=== PATIENT | female | born 1975 | race American Indian/Alaskan Native ===

== ENCOUNTER 2018-12-07 12:46 | Outpatient (CLI) | payer BC ==
--- NOTE | 2018-12-08 08:11 | Ultrasound Report ---
BILATERAL BREAST ULTRASOUND: 12/07/18 12:46:00 CLINICAL: Abnormal mammogram. COMPARISON: 11/15/18 [facility] mammogram. FINDINGS: Ultrasound of the right breast(including all four quadrants and the retroareolar area) was performed and demonstrated no solid mass or shadowing. An irregular complex collection contiguous to the skin at 7 o'clock 11 cm from the nipple measures 3.5 x 2.6 x 1.2 cm. There is associated carbuncle at the skin. An abnormal inferior axillary lymph node with cortical thickening of 6 mm at 10 o'clock 14 cm from the nipple. The lymph node measures 1.5 x 0.9 x 1.6 cm. An intramammary lymph node at 10 o'clock 11 cm from the nipple has a thinner cortex and measures 1.2 x 0.9 x 1.3 cm. Several additional abnormal right axillary lymph nodes. Ultrasound of the left breast (including all four quadrants and the retroareolar area) was performed and demonstrated an oval shadowing solid hypoechoic mass at 9:30 o'clock 5 cm from the nipple. It measures 7 x 5 x 8 mm. In intramammary lymph node at 2 o'clock 8 cm from nipple measures 1.0 x 1.3 x 0.6 cm. Several benign-appearing left axillary lymph nodes with central fat. No suspicious lymph nodes. IMPRESSION: 1. An inflammatory superficial collection at 7 o'clock 11 cm from the nipple. This is associated with a carbuncle and may be an abscess. 2. Enlarged right intramammary lymph nodes and enlarged axillary lymph nodes with thickened cortex. 3. A probably benign 8mm solid left breast mass at 9:30 o'clock 5 cm from the nipple. RECOMMENDATION: 1. Ultrasound guided aspiration of the inflammatory collection at 7 o'clock right breast. 2. Ultrasound guided needle core biopsy of a right axillary lymph node. 3. 6 month followup left breast ultrasound to reevaluate the probably benign 8mm mass at 9:30 o'clock 5 cm from the nipple. BI-RADS 4--Suspicious
--- NOTE | 2018-12-08 08:18 | Ultrasound Report ---
ULTRASOUND GUIDED NEEDLE CORE BIOPSY OF A RIGHT AXILLARY LYMPH NODE WITH CLIP PLACEMENT and ULTRASOUND GUIDED NEEDLE ASPIRATION RIGHT BREAST : 12/07/18 12:46:00 CLINICAL: Enlarged suspicious right axillary lymph nodes and a possible abscess at 07:00 11 cmfn. COMPARISON :Same-day ultrasound FINDINGS: The procedure was explained to the patient and informed consent was obtained. The skin in the axilla was prepped with Betadine and anesthetized with 1% lidocaine. Ultrasound guided needle core biopsy of an inferior axillary lymph node was performed through a small dermatotomy using 2% lidocaine with epinephrine for deep anesthesia and a 18-gauge Achieve biopsy device. 3 samples were obtained and placed in formalin. A clip was deployed within the lymph node. Attention was then given to the lesion at 7 o'clock 11 cm from the nipple. The skin was anesthetized with 1% lidocaine and an 18-gauge needle was introduced into the collection associated with the carbuncle at the skin. No fluid could be aspirated. However, the needle was rinsed with saline and a specimen was sent for Gram stain. Hemostasis was achieved with minimal pressure and a sterile dressing was applied. The patient tolerated the procedure well and there were no apparent complications. She was discharged in good condition and was given instructions for wound care and followup. IMPRESSION: Uncomplicated ultrasound-guided needle core biopsy of a right lymph node with clip placement and ultrasound guided aspiration of an inflammatory skin lesion at 7 o'clock. No abscess.
== END 2018-12-07 12:47 | disposition home or self-care (01) ==
LOC: SPVWC 12:46
PROVIDERS: ATTEND Surgery
DX: I89.8 Other specified noninfective disorders of lymphatic vessels and lymph nodes (principal); N63.22 Unspecified lump in the left breast, upper inner quadrant; F17.210 Nicotine dependence, cigarettes, uncomplicated; I11.0 Hypertensive heart disease with heart failure; E78.5 Hyperlipidemia, unspecified; I50.23 Acute on chronic systolic (congestive) heart failure; I42.9 Cardiomyopathy, unspecified; E66.9 Obesity, unspecified; E03.9 Hypothyroidism, unspecified; Z98.890 Other specified postprocedural states; Z98.51 Tubal ligation status; Z79.899 Other long term (current) drug therapy; Z90.49 Acquired absence of other specified parts of digestive tract; Z98.891 History of uterine scar from previous surgery; Z86.2 Personal history of diseases of the blood and blood-forming organs and certain disorders involving the immune mechanism; Z88.8 Allergy status to other drugs, medicaments and biological substances; Z82.49 Family history of ischemic heart disease and other diseases of the circulatory system
CPT/HCPCS: 38505; 76942; 87205; 88305; 88342

== ENCOUNTER 2019-05-11 21:00 | Emergency (ER) | payer BC ==
--- NOTE | 2019-05-11 21:25 | Emergency Department Report ---
Blank Doc - Documentation Documentation: 44-year-old female that presents with chest pain, sOB, with radiation to left arm. This initial assessment/diagnostic orders/clinical plan/treatment(s) is/are subject to change based on patient's health status, clinical progression and re- assessment by fellow clinical providers in the ED. Further treatment and workup at subsequent clinical providers discretion. Patient/guardians urged not to elope from the ED as their condition may be serious if not clinically assessed a nd managed. Initial orders include: 1- Patient sent to MAIN ED for further evaluation and treatment 2- labs 3- UA 4- CXR
[2019-05-11] MEDS ORDERED: ONDANSETRON 4 MG/2 ML INJ IV ONE (21:56)
[2019-05-11] MEDS ORDERED: MORPHINE 4 MG/1 ML INJ IV ONE (21:56)
[2019-05-11 22:01] LABS: Basophils % (Auto) 0.4 % (0.0-1.8); Eosinophils # (Auto) 0.2 K/mm3 (0.0-0.4); Eosinophils % (Auto) 2.3 % (0.0-4.3); Hematocrit 42.5 % (30.3-42.9); Hemoglobin 13.7 gm/dl (10.1-14.3); Lymphocytes % (Auto) 23.5 % (13.4-35.0); Mean Corpuscular HGB Conc 32 % (30-34); Mean Corpuscular Volume 77 fl (79-97); Monocytes # (Auto) 0.5 K/mm3 (0.0-0.8); Monocytes % (Auto) 5.3 % (0.0-7.3); Platelet Count 247 K/mm3 (140-440); Red Cell Distribution Width 13.9 % (13.2-15.2)
[2019-05-11 22:10] LABS: INR 0.94 (0.87-1.13)
[2019-05-11 22:11] LABS: Partial Thromboplastin Time 25.3 Sec. (24.2-36.6)
--- NOTE | 2019-05-11 22:20 | Emergency Department Report ---
ED General Adult HPI - General Chief complaint: Chest Pain Stated complaint: CHEST PAIN,SHORTNESS OF BREATH Time Seen by Provider: 05/11/19 21:23 Source: patient Mode of arrival: Ambulatory Limitations: No Limitations - History of Present Illness Initial comments: Patient presents to the emergency department with a chief complaint of shortness of breath with chest pain for the last 5 hours. Patient describes the chest pain as a tightness and denies any radiation. Patient has a history of congestive heart failure and takes Lasix. Patient also states that she takes control pills as well. Patient also complains of a headache that's diffuse in nature for the last 5 days with no relief from home Tylenol. Patient states that she normally only has headaches when her blood pressure is high and denies this being the worse headache of her life -: Gradual Location: head, chest Severity scale (0 -10): 5 Quality: aching Improves with: none Worsens with: none Associated Symptoms: denies other symptoms Treatments Prior to Arrival: none - Related Data Previous Rx's Medication Instructions Recorded Last Taken Type Butalb/Acetamin/Caff 50-325-40 1 tab PO Q6H PRN #60 tablet 04/13/18 Unknown Rx [Fioricet 50-325-40] Chlorthalidone [Thalitone] 25 mg PO QDAY #30 tablet 04/13/18 Unknown Rx amLODIPine 10 mg PO DAILY #60 tablet 04/13/18 Unknown Rx carvediloL [Coreg] 25 mg PO BID #60 tablet 04/13/18 Unknown Rx cloNIDine [Catapres] 0.2 mg PO BID #60 tablet 04/13/18 Unknown Rx Butalb/Acetamin/Caff 50-325-40 1 tab PO Q6HR PRN #24 tab 05/12/19 Unknown Rx [Fioricet] Allergies Allergy/AdvReac Type Severity Reaction Status Date / Time lisinopril Allergy Angioedema Verified 04/10/18 18:30 losartan Allergy Angioedema Verified 04/12/18 19:22 ED Review of Systems ROS: Stated complaint: CHEST PAIN,SHORTNESS OF BREATH Other details as noted in HPI Constitutional: denies: chills, fever Eyes: denies: eye pain, eye discharge, vision change ENT: denies: ear pain, throat pain Respiratory: shortness of breath. denies: cough, wheezing Cardiovascular: chest pain. denies: palpitations Endocrine: no symptoms reported Gastrointestinal: denies: abdominal pain, nausea, diarrhea Genitourinary: denies: urgency, dysuria, discharge Musculoskeletal: denies: back pain, joint swelling, arthralgia Skin: denies: rash, lesions Neurological: denies: headache, weakness, paresthesias Psychiatric: denies: anxiety, depression Hematological/Lymphatic: denies: easy bleeding, easy bruising ED Past Medical Hx - Past Medical History Previous Medical History?: Yes Hx Hypertension: Yes Hx Congestive Heart Failure: Yes Hx Diabetes: Yes Additional medical history: Uterine Fibroids. Hyperthyroidism - Surgical History Hx Cholecystectomy: Yes (08/2014) Additional Surgical History: tubal ligation. x 2 - Social History Smoking Status: Current Some Day Smoker Substance Use Type: Alcohol - Medications Home Medications: Home Medications Medication Instructions Recorded Confirmed Last Taken Type Butalb/Acetamin/Caff 50-325-40 1 tab PO Q6H PRN #60 tablet 04/13/18 Unknown Rx [Fioricet 50-325-40] Chlorthalidone [Thalitone] 25 mg PO QDAY #30 tablet 04/13/18 Unknown Rx amLODIPine 10 mg PO DAILY #60 tablet 04/13/18 Unknown Rx carvediloL [Coreg] 25 mg PO BID #60 tablet 04/13/18 Unknown Rx cloNIDine [Catapres] 0.2 mg PO BID #60 tablet 04/13/18 Unknown Rx Butalb/Acetamin/Caff 50-325-40 1 tab PO Q6HR PRN #24 tab 05/12/19 Unknown Rx [Fioricet] ED Physical Exam - General Limitations: No Limitations General appearance: alert, in no apparent distress - Head Head exam: Present: atraumatic, normocephalic - Eye Eye exam: Present: normal appearance, PERRL, EOMI - ENT ENT exam: Present: mucous membranes moist - Neck Neck exam: Present: normal inspection - Respiratory Respiratory exam: Present: normal lung sounds bilaterally, rales. Absent: respiratory distress - Cardiovascular Cardiovascular Exam: Present: normal rhythm, tachycardia. Absent: systolic murmur, diastolic murmur, rubs, gallop - GI/Abdominal GI/Abdominal exam: Present: soft, normal bowel sounds. Absent: distended, tenderness - Extremities Exam Extremities exam: Present: normal inspection - Back Exam Back exam: Present: normal inspection - Neurological Exam Neurological exam: Present: alert, oriented X3, CN II-XII intact. Absent: motor sensory deficit - Psychiatric Psychiatric exam: Present: normal affect, normal mood - Skin Skin exam: Present: warm, dry, intact, normal color. Absent: rash ED Course Vital Signs 05/11/19 05/11/19 05/11/19 21:15 21:50 22:01 Temperature 98.7 F Pulse Rate 142 H 130 H 130 H Respiratory 18 20 23 Rate Blood Pressure 167/119 160/108 O2 Sat by Pulse 97 100 98 Oximetry 05/11/19 05/11/19 05/11/19 22:15 22:30 22:45 Temperature Pulse Rate 124 H 138 H 132 H Respiratory 23 26 H 20 Rate Blood Pressure 160/108 171/113 171/113 O2 Sat by Pulse 100 97 99 Oximetry ED Medical Decision Making - Lab Data Result diagrams: 05/11/19 21:35 05/11/19 21:35 Lab Results 05/11/19 05/11/19 05/11/19 Range/Units 21:35 21:35 21:35 WBC 8.7 (4.5-11.0) K/mm3 RBC 5.50 H (3.65-5.03) M/mm3 Hgb 13.7 (10.1-14.3) gm/dl Hct 42.5 (30.3-42.9) % MCV 77 L (79-97) fl MCH 25 L (28-32) pg MCHC 32 (30-34) % RDW 13.9 (13.2-15.2) % Plt Count 247 (140-440) K/mm3 Lymph % (Auto) 23.5 (13.4-35.0) % Borden % (Auto) 5.3 (0.0-7.3) % Eos % (Auto) 2.3 (0.0-4.3) % Baso % (Auto) 0.4 (0.0-1.8) % Lymph # 2.0 (1.2-5.4) K/mm3 Borden # 0.5 (0.0-0.8) K/mm3 Eos # 0.2 (0.0-0.4) K/mm3 Baso # 0.0 (0.0-0.1) K/mm3 Seg Neutrophils % 68.5 (40.0-70.0) % Seg Neutrophils # 6.0 (1.8-7.7) K/mm3 PT 12.5 (12.2-14.9) Sec. INR 0.94 (0.87-1.13) APTT 25.3 (24.2-36.6) Sec. Sodium 140 (137-145) mmol/L Potassium 3.1 L (3.6-5.0) mmol/L Chloride 100.2 (98-107) mmol/L Carbon Dioxide 19 L (22-30) mmol/L Anion Gap 24 mmol/L BUN 18 H (7-17) mg/dL Creatinine 0.9 (0.7-1.2) mg/dL Estimated GFR > 60 ml/min BUN/Creatinine Ratio 20 % Glucose 136 H (65-100) mg/dL Calcium 9.6 (8.4-10.2) mg/dL Total Bilirubin 0.30 (0.1-1.2) mg/dL AST 17 (5-40) units/L ALT 20 (7-56) units/L Alkaline Phosphatase 74 (35-129) units/L Troponin T < 0.010 (0.00-0.029) ng/mL NT-Pro-B Natriuret Pep 473.9 H (0-450) pg/mL Total Protein 8.7 H (6.3-8.2) g/dL Albumin 4.9 (3.9-5) g/dL Albumin/Globulin Ratio 1.3 % TSH (0.270-4.200) mlU/mL HCG, Qual (Negative) 05/11/19 05/11/19 05/12/19 Range/Units 21:35 21:35 00:30 WBC (4.5-11.0) K/mm3 RBC (3.65-5.03) M/mm3 Hgb (10.1-14.3) gm/dl Hct (30.3-42.9) % MCV (79-97) fl MCH (28-32) pg MCHC (30-34) % RDW (13.2-15.2) % Plt Count (140-440) K/mm3 Lymph % (Auto) (13.4-35.0) % Borden % (Auto) (0.0-7.3) % Eos % (Auto) (0.0-4.3) % Baso % (Auto) (0.0-1.8) % Lymph # (1.2-5.4) K/mm3 Borden # (0.0-0.8) K/mm3 Eos # (0.0-0.4) K/mm3 Baso # (0.0-0.1) K/mm3 Seg Neutrophils % (40.0-70.0) % Seg Neutrophils # (1.8-7.7) K/mm3 PT (12.2-14.9) Sec. INR (0.87-1.13) APTT (24.2-36.6) Sec. Sodium (137-145) mmol/L Potassium (3.6-5.0) mmol/L Chloride (98-107) mmol/L Carbon Dioxide (22-30) mmol/L Anion Gap mmol/L BUN (7-17) mg/dL Creatinine (0.7-1.2) mg/dL Estimated GFR ml/min BUN/Creatinine Ratio % Glucose (65-100) mg/dL Calcium (8.4-10.2) mg/dL Total Bilirubin (0.1-1.2) mg/dL AST (5-40) units/L ALT (7-56) units/L Alkaline Phosphatase (35-129) units/L Troponin T < 0.010 (0.00-0.029) ng/mL NT-Pro-B Natriuret Pep (0-450) pg/mL Total Protein (6.3-8.2) g/dL Albumin (3.9-5) g/dL Albumin/Globulin Ratio % TSH 0.448 (0.270-4.200) mlU/mL HCG, Qual Negative (Negative) - EKG Data -: EKG Interpreted by [facility] EKG shows normal: sinus rhythm Rate: tachycardia - Radiology Data Radiology results: report reviewed - Medical Decision Making Results discussed with patient [facility] resolved with [facility] Critical care attestation.: If time is entered above; I have spent that time in minutes in the direct care of this critically ill patient, excluding procedure time. ED Disposition Clinical Impression: Nonspecific chest pain, Headache Disposition: - TO HOME OR SELFCARE Is pt being admited?: No Does the pt Need Aspirin: No Condition: Stable Instructions: Noncardiac Chest Pain (ED), Chest Pain (ED), Acute Headache (ED) Additional Instructions: return if worse Time of Disposition: 02:47
[2019-05-11 22:28] LABS: Alanine Aminotransferase 20 units/L (7-56); Albumin 4.9 g/dL (3.9-5); BUN/Creatinine Ratio 20; Blood Urea Nitrogen 18 mg/dL (7-17); Calcium 9.6 mg/dL (8.4-10.2); Hemolysis Index 0
--- NOTE | 2019-05-11 23:14 | XRay Report ---
CHEST 2 VIEWS INDICATION: Chest Pain. COMPARISON: None FINDINGS: Support devices: None. Heart: Mild cardiac enlargement is present Lungs: Proximal vascular markings are prominent Pleura: No significant pleural effusion. No pneumothorax. Additional findings: None. IMPRESSION: 1. Pulmonary venous hypertension with mild cardiac enlargement Signer Name: Anastacio Palma MD Signed: 05/11/2019 11:10 PM Workstation Name: [id number]
[2019-05-12] MEDS ORDERED: MORPHINE 4 MG/1 ML INJ IV ONE
[2019-05-12] MEDS ORDERED: MORPHINE 4 MG/1 ML INJ ONE (00:06)
[2019-05-12] MEDS ORDERED: SODIUM CHLORIDE IRRI 500 ML 0 ML IR ONE (00:59)
--- NOTE | 2019-05-12 02:19 | Cat Scan Report ---
CT head/brain wo con INDICATION / CLINICAL INFORMATION: headache. TECHNIQUE: Axial CT imaging of abdomen and pelvis was obtained without contrast. Coronal and sagittal reformatte d imaging obtained and reviewed. All CT scans at this location are performed using CT dose reduction for ALARA by means of automated exposure control. COMPARISON: Prior head CT, 04/10/2018 FINDINGS: No intracranial hemorrhage, mass, or midline shift is noted. No extra-axial fluid collection or sugge stion of acute territorial infarct. Ventricular system and basilar cisterns are unremarkable. Small r ight basal ganglia lacunar infarct is present and unchanged from the 04/10/2018 exam. Visualized paranasal sinuses and mastoid air cells are well aerated and clear. No calvarial abnormali ty. IMPRESSION: 1. No acute intracranial abnormality. No interval change from prior head CT scan. Signer Name: Claribel Oneil MD Signed: 05/12/2019 2:15 AM Workstation Name: [id number]
--- NOTE | 2019-05-12 02:24 | Cat Scan Report ---
CTA CHEST WITH IV CONTRAST INDICATION / CLINICAL INFORMATION: chest pain with sob/tachycardia. TECHNIQUE: Axial CT images were obtained through the chest after injection of 100 mL IV contrast. 3 plane MIP an d/or 3D reconstructions were produced. All CT scans at this location are performed using CT dose redu ction for [facility] by means of automated exposure control. COMPARISON: Chest x-ray performed earlier today FINDINGS: PULMONARY ARTERIES: No pulmonary emboli. THORACIC AORTA: No significant abnormality. HEART: Mild cardiomegaly. No pericardial effusion. CORONARY ARTERIES: No significant calcification. PLEURA: No pleural effusion. No pneumothorax. LYMPH NODES: No significant adenopathy. LUNGS: No acute air space or interstitial disease. ADDITIONAL FINDINGS: None. UPPER ABDOMEN: No acute findings. SKELETAL STRUCTURES: No significant osseous abnormality. IMPRESSION: 1. No CT evidence for pulmonary embolism. 2. Mild cardiomegaly. 3. No acute finding. Signer Name: Claribel Oneil MD Signed: 05/12/2019 2:19 AM Workstation Name: [id number]
[2019-05-12] MEDS ORDERED: METOCLOPRAMIDE 10 MG/2 ML INJ IV ONE (02:30)
[2019-05-12] MEDS ORDERED: diphenhydrAMINE 50 MG/ML VIAL IV ONE (02:30)
[2019-05-12] MEDS ORDERED: BUTALB/ACETAMINOPHEN/CAFFEINE TAB PO ONE (02:31)
[2019-05-12 03:38] VITALS: BP 160/111
== END 2019-05-12 04:20 | disposition home or self-care (01) ==
LOC: ED 21:00
DX: I11.0 Hypertensive heart disease with heart failure (principal); I50.9 Heart failure, unspecified; E11.9 Type 2 diabetes mellitus without complications; F17.200 Nicotine dependence, unspecified, uncomplicated; Z90.49 Acquired absence of other specified parts of digestive tract; Z98.51 Tubal ligation status; Z79.899 Other long term (current) drug therapy; Z88.8 Allergy status to other drugs, medicaments and biological substances
CPT/HCPCS: 36415; 70450; 71046; 71275; 80053; 83880; 84443; 84484; 84703; 85025; 85610; 85730; 93005; 93010; 96374; 96375; 96376; 99285; J1200; J2270; J2405; J2765; Q9967

== ENCOUNTER 2019-06-09 13:58 | Outpatient (CLI) | payer BC ==
--- NOTE | 2019-06-09 15:23 | Cat Scan Report ---
CT LOWER EXTREMITY RIGHT WITHOUT CONTRAST INDICATION : M25.561 PAIN IN RIGHT KNEE. TECHNIQUE: Axial imaging performed through the right knee without the use of contrast. Sagittal and coronal reformatted images. All CT scans at this location are performed using CT dose reduction for A TIM by means of automated exposure control. COMPARISON: None at this facility. FINDINGS: Normal bone mineralization. No evidence for fracture, bony destruction, bone lesion or degenerative c hanges. The medial and lateral joint spaces are within normal limits.. No obvious internal derangemen t on noncontrast CT. A Wiberg type III patellofemoral relationship is identified. The soft tissues are within normal limits. IMPRESSION: No fracture, bone lesion or significant degenerative changes. A Wiberg type III patellofemoral relationship is identified. Consider a patellofemoral tracking disor laurita. Signer Name: Brandan Pickering Jr, MD Signed: 06/09/2019 3:19 PM Workstation Name: [id number]
== END 2019-06-09 13:59 | disposition home or self-care (01) ==
LOC: CT 13:58
PROVIDERS: ATTEND Orthopaedic Surgery
DX: M25.561 Pain in right knee (principal)

== ENCOUNTER 2019-06-23 09:29 | Outpatient (CLI) | payer BC ==
--- NOTE | 2019-06-23 11:19 | Magnetic Resonance Report ---
MRI RIGHT KNEE WITHOUT CONTRAST INDICATION: M25.561 PAIN IN RIGHT KNEE. COMPARISON: None available. TECHNIQUE: Multisequence, multiplanar images were obtained. FINDINGS: ACL: There is mild mucoid degeneration of the ACL. PCL: Normal. DISTAL QUADRICEPS TENDON: Normal. PATELLAR TENDON: Normal. MEDIAL MENISCUS: Normal. LATERAL MENISCUS: Normal. POSTEROLATERAL CORNER: Normal. MCL: Normal. LCL: Normal. DISTAL BICEPS FEMORIS TENDON: Normal. POPLITEUS TENDON: Normal. DISTAL IT BAND: Normal. ARTICULAR CARTILAGE: No chondrosis or articular cartilage defect. JOINT SPACE: No significant joint effusion or synovitis. No popliteal cyst. INTRA-ARTICULAR BODIES: None. BONES: No bone marrow edema. No fracture. No osseous lesion. SOFT TISSUES: No acute findings. ADDITIONAL FINDINGS: None. IMPRESSION: 1. Mild mucoid degeneration of the ACL. 2. No additional significant soft tissue or osseous abnormality in the right knee. Signer Name: Ayad Leyva MD Signed: 06/23/2019 11:15 AM Workstation Name: [id number]
== END 2019-06-23 09:30 | disposition home or self-care (01) ==
LOC: MRI 09:29
PROVIDERS: ATTEND Orthopaedic Surgery
DX: M23.611 Other spontaneous disruption of anterior cruciate ligament of right knee (principal)
CPT/HCPCS: 73721

== ENCOUNTER 2020-10-29 10:26 | Emergency (ER) | payer BC ==
[2020-10-29 10:58] VITALS: BP 129/82
--- NOTE | 2020-10-29 11:08 | Event Note ---
ED Screening Note Date of service: 10/29/20 Time: 11:08 ED Screening Note: She complains of chest pain History of CHF, hypertension, and smoker This initial assessment/diagnostic orders/clinical plan/treatment(s) is/are subject to change based on patients health status, clinical progression and re- assessment by fellow clinical providers in the ED. Further treatment and workup at subsequent clinical providers discretion. Patient/guardian urged not to elope from the ED as their condition may be serious if not clinically assessed and managed. Initial orders include: Labs Chest x-ray EKG
--- NOTE | 2020-10-29 11:42 | XRay Report ---
CHEST 2 VIEWS INDICATION / CLINICAL INFORMATION: chest pain. COMPARISON: 05/11/2019 FINDINGS: SUPPORT DEVICES: None. HEART / MEDIASTINUM: Stable mild cardiomegaly. LUNGS / PLEURA: There is mild pulmonary edema with a tiny right pleural effusion. ADDITIONAL FINDINGS: No significant additional findings. IMPRESSION: 1. Findings likely indicating mild CHF as detailed above. Signer Name: Ayad Leyva MD Signed: 10/29/2020 11:38 AM Workstation Name: [email or web address]
[2020-10-29 12:31] LABS: Hematocrit 34.8 % (30.3-42.9); Hemoglobin 11.2 gm/dl (10.1-14.3); Mean Corpuscular HGB Conc 32 % (30-34); Mean Corpuscular Volume 76 fl (79-97); Platelet Count 197 K/mm3 (140-440); Red Blood Count 4.58 M/mm3 (3.65-5.03); Red Cell Distribution Width 13.6 % (13.2-15.2)
[2020-10-29 12:37] LABS: Eosinophils % (Auto) 0.3 % (0.0-4.3); Monocytes # (Auto) 0.5 K/mm3 (0.0-0.8)
[2020-10-29 12:38] LABS: Lymphocytes % (Auto) 12.3 % (13.4-35.0)
[2020-10-29 12:39] LABS: Basophils % (Auto) 0.2 % (0.0-1.8); Lymphocytes # (Auto) 1.1 K/mm3 (1.2-5.4); Monocytes % (Auto) 6.1 % (0.0-7.3)
[2020-10-29 12:57] LABS: Alanine Aminotransferase 83 units/L (7-56); Albumin 3.8 g/dL (3.9-5); BUN/Creatinine Ratio 14; Blood Urea Nitrogen 10 mg/dL (7-17); Hemolysis Index 2
== END 2020-10-29 13:00 | disposition left against medical advice (07) ==
LOC: ED 10:26
DX: R07.89 Other chest pain (principal); Z53.21 Procedure and treatment not carried out due to patient leaving prior to being seen by health care provider
CPT/HCPCS: 36415; 71046; 80053; 83880; 84484; 85007; 85025; 93005